=== PATIENT | male | born 1970 | race Caucasian/White ===

== ENCOUNTER 2016-09-19 10:36 | Emergency (ER) | payer OTHER ==
[~2016-09-19] VITALS: Ht 172.7 cm; Wt 85.0 kg
[2016-09-19 10:38] VITALS: Ht 172.7 cm; Wt 85.0 kg
[2016-09-19] MEDS ORDERED: KETOROLAC 30 MG INJ IM STA (11:46)
--- NOTE | 2016-09-19 11:46 | ERD ---
ER Documentation Chief Complaint Date/Time DATE: 09/19/16 TIME: 11:29 Chief Complaint right knee pain,swelling.unknown cause HPI 46 y/o male presents to ED for nontraumatic right knee pain, swelling with unknown cause. Patient stated that the pain is worse whenever he bears weight and it. Symptoms started about a week. Denies headache, loss of consciousness, dizziness, blurry vision, changes in vision, photophobia, facial pain, ear pain, throat pain, difficulty swallowing, neck pain, shoulder pain, chest pain, cough, hemoptysis, abdominal pain, back pain, loss of appetite, nausea, vomiting, hematochezia, diarrhea, constipation, urinary symptoms, bladder and bowel incontinences, numbness or tingling sensation, recent travel, recent exposure to illness, recent antibiotic use in the last 3 months, fever, chills. Allergy: NKA PMH: Denies. Medications: Motrin. Surgery: Denies. Family history: Denies. Primary Social History: Works at [employer]. Denies smoking, use of alcohol, use of illegal drugs. ROS All systems reviewed and are negative except as per history of present illness. Physical Exam Vitals Vital Signs Date Time Temp Pulse Resp B/P Pulse Ox O2 Delivery O2 Flow Rate FiO2 09/19/16 10:38 97.1 88 18 124/81 98 Physical Exam CONSTITUTIONAL: Well-appearing; well-nourished; in no apparent distress. HEAD: Normocephalic; atraumatic. EYES: Conjunctiva clear, sclera non-icteric, EOM intact. PERRL Ears: Hearing intact. EACs clear, TMs non-bulging, non-inflamed, translucent & mobile, ossicles normal appearance, No obstructions, no erythema, no discharges Nose: No obstructions. No polyps. No external lesions. Mucosa non-inflamed. No external lesions, septum and turbinates normal. No rhinorrhea. No discharges. Frontal sinus is non-tender to palpation. Maxillary sinus is non-tender to palpation. MOUTH: Moist mucous membranes, no lesion, no obstructions, no vesicles, no thrush, patent airway Throat: Uvula in midline. Right tonsil is +1 with no erythema, no exudate. Left tonsil is +1 with no erythema, no exudate. Tolerating secretions well. Good gag reflex. Patent airway. Neck: Supple, without lesions, bruits, or adenopathy. No mass. Thyroid non- enlarged and non-tender to palpation. CHEST: Symmetrical chest. Respirations even and not labored. No retractions noted. CARDIOVASCULAR: Normal S1, S2. RRR. No murmurs, gallops. RESPIRATORY: Normal chest excursion with respiration; breath sounds clear and equal bilaterally; no wheezes, rhonchi, or rales. Breathing even and unlabored. Speaking in clear, full, and complete sentences w/ ease. ABDOMEN: Normal bowel sounds normal. Soft, round, non-distended, non-guarding, no tenderness, no rebound, no organomegaly, no masses, no pulsating abdominal mass. No hernia. No peritoneal signs. : No CVA tenderness. BACK: Symmetrical shoulder. Spine is midline without deformity, tenderness. No evidence of trauma or deformity. PELVIS: Stable pelvis. No evidence of trauma or deformity. MUSCULOSKELETAL: No misalignment, asymmetry, crepitation, defects, masses, effusions, decreased range of motion, instability, atrophy or abnormal strength or tone in the head, neck, spine, ribs, pelvis or extremities except right knee tenderness to medial aspect of the knee near patellar tendon and superior and inferior aspect of the patella. There is no obvious swelling/deformity/ discoloration. No calf tenderness. Left knee is unremarkable. Bilateral hips are unremarkable. Bilateral ankle/foot unremarkable. Circulation sensation is intact. No neurovascular deficits. Negative Homans sign. NEUROVASCULAR: Distal pulses are present. Pedal pulse are present, equal, and normal. Capillary refills are < 2 seconds. NEUROLOGIC: Alert and oriented x4. Speaks full and clear sentences. Cranial Nerves II-XII normal. Sensation to pain, touch, and proprioception normal. Grossly unremarkable. No neurologic deficits. Romberg test is negative. PSYCHOLOGICAL: The patients mood and manner are appropriate. No hallucinations , delusions. Not SI. Not HI. Has the capacity to decide for self SKIN: Normal for age and ethnicity; warm; dry; good turgor; no apparent lesions or exudates. No rashes, hives, discoloration. Intact. Results 24 hrs Current Medications Medications (Trade) Dose Ordered Sig/Chloe Route PRN Reason Start Time Stop Time Status Last Admin Dose Admin Ketorolac Tromethamine (Toradol) 30 mg ONCE STAT IM 2/14/17 11:46 09/19/16 11:49 DC 09/19/16 12:43 Procedures/MDM Examination: Please see physical examination. Disease process, medical treatment was explained to the patient and family member. They verbalized understanding and agreed with the diagnostic tests, medical treatment, and follow-up care. Radiology: X-ray of the right knee: Impression: Early osteoarthritis involving the right patella. Treatment: Toradol IM. Re-evaluation: Denies pain. Consultation: None. Differential diagnosis: Fracture versus contusion versus sprain versus gout versus septic arthritis versus DVT versus osteomyelitis Medical decision [id number] y/o male presents to ED for nontraumatic right knee pain, swelling with unknown cause. Patient stated that the pain is worse whenever he bears weight and it. Symptoms started about a week. Patient's complaint, patient's history, diagnostic test results, re-evaluation are consistent with my final diagnosis of osteoarthritis right knee. This is process was explained to the patient. Patient verbalized understanding. Medications prescribed are the following: Tylenol and Motrin for pain. Patient instructed to the first line of treatment for this to control pain is Tylenol then Motrin and if does not work his primary care physician should change it to another line of medication. He verbalized understanding. Patient and family member are made aware of the side effects and adverse reactions of the medications prescribed. Instructed on when to seek emergent and medical attention in case allergic/anaphylactic reactions or severe side effects and or adverse reactions to medications. Patient and family member verbalized understanding. Patient instructed Instructed to follow-up with his PCP in 24-48 hours. Patient was also instructed to lose weight. And was also instructed on body mechanics. Instructed to Call 911 for chest pain, shortness of breath. Advised to come back here in ED as soon as possible for severity of symptoms which includes but not limited to: any new symptoms; shortness of breath/difficulty of breathing; cardiovascular changes; severe gastrointestinal symptoms; signs and symptoms of bleeding and or infection; signs of compartment syndrome/neurovascular changes; neurological changes/deficits. Patient and family member verbalized understanding. Upon discharge, patient is alert and oriented x 4, speaks full and clear sentences, denies pain, has no neurological deficits, has no neurovascular deficits, difficulty of breathing. Breathing even and unlabored. Lung sounds are clear to auscultation. Not in distress. Appears comfortable. Ambulatory with steady gait. Appears satisfied with care provided here in ED. Departure Diagnosis: Primary Impression: Knee pain Laterality: right Chronicity: unspecified Qualified Code: M25.561 - Right knee pain, unspecified chronicity Condition: Good Additional Instructions: Follow-up with primary care physician the next 24-48 hours. HAILE SANCHES Sep 19, 2016 11:46 HAILE SANCHES Sep 19, 2016 11:46
--- NOTE | 2016-09-19 12:44 | RADRPT ---
PROCEDURE: Right knee x-ray CLINICAL INDICATION: Pain. TECHNIQUE: AP, lateral and oblique views of the right knee were obtained. COMPARISON: None FINDINGS: There are small spurs off the dorsal surface of the patella. No effusion is noted. The other bony elements are normal. IMPRESSION: 1. Early osteoarthritis involving the right patella. RPTAT:AAJJ Physician Dat Date Time Electronically viewed and signed by Harlan Villatoro Physician on 09/19/2016 12:44 MARLEE/
[2016-09-19] MEDS ORDERED: IBUP800T25 PO (13:03)
== END 2016-09-19 14:18 | disposition home or self-care (01) ==
LOC: FTE 10:36
DX: M25.561 Pain in right knee (principal)
CPT/HCPCS: 73562; 96372; J1885; Z7502

== ENCOUNTER 2017-11-16 19:09 | Emergency (ER) | END 2017-11-16 21:57 | disposition home or self-care (01) ==